=== PATIENT | female | born 1970 | race Caucasian/White ===

== ENCOUNTER → 2022-06-27 15:40 | Outpatient (BNVA) | payer OTHER, SELFPAY | PROVIDERS: Family Provider Nurse Practitioner; PCP Nurse Practitioner; Referring Provider Dermatology; Visit Provider Podiatrist Foot & Ankle Surgery | DX: M72.2 Plantar fascial fibromatosis (principal); M20.41 Other hammer toe(s) (acquired), right foot; M20.42 Other hammer toe(s) (acquired), left foot; M21.611 Bunion of right foot; M21.612 Bunion of left foot | CPT/HCPCS: 73630 ==

== ENCOUNTER → 2024-10-07 07:54 | Outpatient (BNVA) | payer OTHER, SELFPAY | PROVIDERS: Family Provider Nurse Practitioner; PCP Nurse Practitioner; Visit Provider Podiatrist Foot & Ankle Surgery | DX: M79.671 Pain in right foot (principal); M19.071 Primary osteoarthritis, right ankle and foot | CPT/HCPCS: 73630 ==

== ENCOUNTER 2024-12-22 15:52 | Emergency (ER) | payer OTHER, SELFPAY ==
[2024-12-22 16:34] VITALS: BP 162/93; PULSE 73; RESP 18; TEMP 36.6; O2SAT 97
--- NOTE | 2024-12-22 16:43 | CTR_ITS ---
PROCEDURE INFORMATION: Exam: CT Head Without Contrast Exam date and time: 12/22/2024 5:10 PM Age: 54 years old Clinical indication: Injury or trauma; Fall; Work related; Blunt trauma (contusions or hematomas); Without loss of consciousness TECHNIQUE: Imaging protocol: Computed tomography of the head without contrast. Radiation optimization: All CT scans at this facility use at least one of these dose optimization techniques: automated exposure control; mA and/or kV adjustment per patient size (includes targeted exams where dose is matched to clinical indication); or iterative reconstruction. COMPARISON: CT facial bones wo con* [id number] 12/22/2024 5:10 PM RADIATION DOSE METRICS: Total DLP (mGy-cm): 1135.4 FINDINGS: Brain: Normal. No hemorrhage. Unremarkable white matter. No mass effect. Cerebral ventricles: No ventriculomegaly. Paranasal sinuses: Visualized sinuses are unremarkable. No fluid levels. Mastoid air cells: Visualized mastoid air cells are well aerated. Bones: Hyperostosis frontalis. Mildly displaced left nasal bone fracture. Soft tissues: Left frontal scalp and periorbital hematomas. CT/CT head wo con* [id number] IMPRESSION: 1. No acute intracranial abnormality. 2. Left frontal scalp and periorbital hematomas. 3. Mildly displaced left nasal bone fracture.
--- NOTE | 2024-12-22 16:43 | CTR_ITS ---
PROCEDURE INFORMATION: Exam: CT Maxillofacial Without Contrast Exam date and time: 12/22/2024 5:10 PM Age: 54 years old Clinical indication: Injury or trauma; Fall; Work related; Blunt trauma (contusions or hematomas); Orbit/periorbital; Left TECHNIQUE: Imaging protocol: Computed tomography of the face without contrast. Radiation optimization: All CT scans at this facility use at least one of these dose optimization techniques: automated exposure control; mA and/or kV adjustment per patient size (includes targeted exams where dose is matched to clinical indication); or iterative reconstruction. COMPARISON: CT head wo con* [id number] 12/22/2024 5:10 PM RADIATION DOSE METRICS: Total DLP (mGy-cm): 577.2 FINDINGS: Paranasal sinuses: No air-fluid levels. Orbital cavities: Orbits are normal. Globes are unremarkable. Teeth: Small periapical lucencies along right mandibular molars. Bones: Mildly displaced left nasal bone fracture. Soft tissues: Left periorbital and frontal scalp hematomas. CT/CT facial bones wo con* [id number] IMPRESSION: 1. Mildly displaced left nasal bone fracture. 2. Left periorbital and frontal scalp hematomas. 3. Small right mandibular molar periapical lucencies. Consider dental consultation.
--- NOTE | 2024-12-22 16:44 | ECG_ITS ---
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 Measurements Intervals [place] Rate: 65 P: -14 WI: 165 QRS: 48 QRSD: 110 T: -13 QT: 381 QTc: 398 Interpretive Statements SINUS RHYTHM LOW QRS VOLTAGE IN PRECORDIAL LEADS [QRS DEFLECTION < 1.0 mV IN CHEST LEADS] INCOMPLETE RIGHT BUNDLE BRANCH BLOCK [90+ ms QRS DURATION, TERMINAL R IN V1/V2, 40+ ms S IN I/aVL/V4/V5/V6] SEPTAL MYOCARDIAL INFARCTION , OF INDETERMINATE AGE [40+ ms Q WAVE IN V1/V2] No previous ECG available for comparison Electronically Signed On 12-26-2024 18:11:02 ELECTRIC APPLIANCE INSTALLER by Tab Silverio M.D. [email or web address]
--- NOTE | 2024-12-22 16:51 | XRR_ITS ---
PROCEDURE INFORMATION: Exam: XR Right Knee Exam date and time: 12/22/2024 4:56 PM Age: 54 years old Clinical indication: Injury or trauma; Other: Not specified; Blunt trauma; Knee; Bilateral TECHNIQUE: Imaging protocol: Radiologic exam of the right knee. Views: 3 views. COMPARISON: CR XR foot RT min 3V* [id number] 10/07/2024 8:00 AM FINDINGS: Bones/joints: No acute fracture or dislocation. Mild tricompartmental degenerative changes with mild joint space narrowing and marginal osteophytes. Soft tissues: Normal. XR/XR knee RT 3V* [id number] IMPRESSION: No acute osseous findings.
--- NOTE | 2024-12-22 16:51 | XRR_ITS ---
PROCEDURE INFORMATION: Exam: XR Right Elbow Exam date and time: 12/22/2024 5:00 PM Age: 54 years old Clinical indication: Injury or trauma; Other: Not specified; Blunt trauma (contusions or hematomas); Elbow; Right TECHNIQUE: Imaging protocol: Radiologic exam of the right elbow. Views: 3 or more views. COMPARISON: No relevant prior studies available. FINDINGS: Bones/joints: Normal. Soft tissues: Normal. XR/XR elbow RT min 3V* [id number] IMPRESSION: No acute findings.
--- NOTE | 2024-12-22 16:51 | XRR_ITS ---
PROCEDURE INFORMATION: Exam: XR Left Knee Exam date and time: 12/22/2024 4:59 PM Age: 54 years old Clinical indication: Injury or trauma; Other: Not specified; Blunt trauma; Knee; Bilateral TECHNIQUE: Imaging protocol: Radiologic exam of the left knee. Views: 3 views. COMPARISON: CR XR foot LT min 3V* [id number] 06/27/2022 3:43 PM FINDINGS: Bones/joints: No acute fracture or dislocation. Mild tricompartmental degenerative changes most pronounced in the lateral compartment with joint space narrowing and marginal osteophytes. Soft tissues: Normal. XR/XR knee LT 3V* [id number] IMPRESSION: No acute osseous findings.
--- NOTE | 2024-12-22 16:57 | ED_ITS ---
Documented by User: Felix Cardenas DO 12/25/24 13:15 HPI - Fall 2 General: Chief Complaint: Fall Stated Complaint: fall (work comp) Time Seen by Provider: 12/22/24 16:42 History of Present Illness: 54-year-old female presents to the emerg ency room she stumbled and fell while at work landed on outstretched extremities he impacted on her knees and elbows as well as on her face she has bruising on her face and hematoma above her left eye she did not lose consciousness. She is not on any anticoagulants. She is awake and alert the entire time she never had any chest pain she simply stumbled Associated symptoms-after fall: Denies abdominal pain, chest pain or neck pain Related Data Previous Rx's ?Medication ?Instructions ?Recorded meloxicam 15 mg tablet 15 mg PO DAILY #30 tabs 10/21 05/14 Allergies Allergy/AdvReac Type Severity Reaction Status Date / Time Iodinated Contrast Media Allergy Mild rash Verified 12/22/24 16:41 iodine Allergy Mild rash Verified 12/22/24 16:41 shellfish derived Allergy Mild nausea/vomi Verified 12/22/24 16:41 ting Penicillins Allergy rash Verified 12/22/24 16:41 steri strips Allergy ALGY-Bliste Uncoded 12/22/24 16:42 r Review of Systems 2 Const: Denies: fever(s) or chills Card: Denies: chest pain Resp: Denies: dyspnea GI: Denies: abdominal pain : Denies: dysuria, urinary frequency or urinary urgency Musc: Denies: neck pain or back pain Skin/Breast: Denies: rash PFSH ED 2 PFSH: Social History Smoking and tobacco/nicotine status: never used tobacco/nicotine Physical Exam 2 Const: GENERAL APPEARANCE: cooperative ORIENTATION/CONSCIOUSNESS: Yes awake, Yes oriented to person, Yes oriented to place and Yes oriented to time HENMT: COMMON NORMALS: normocephalic and hearing grossly normal bilaterally HEAD & SCALP: normocephalic OTHER: Bruising and swelling above the left eye left lower lip some bruising on the left side of the bridge of the nose. Jaw closes evenly with good alignment. No pain with palpation of the neck Resp: COMMON NORMALS: normal respiratory effort, No retractions, No use of accessory muscles and clear to auscultation bilaterally AUSCULTATION: clear to auscultation bilaterally Cardio: COMMON NORMALS: regular rate, regular rhythm and No murmurs present (Cardio) RATE: regular rate RHYTHM: regular rhythm GI: COMMON NORMALS: Soft to palpation and No hepatosplenomegaly present A USCULTATION: Yes normoactive bowel sounds PALPATION: Yes Soft to palpation, No Tenderness to palpation present (GI), No Guarding due to palpation present (GI) and Yes No hepatosplenomegaly present Extremity: COMMON NORMALS: normal to inspection, capillary refill normal, no clubbing, cyanosis or edema, no calf tenderness and no pedal edema Neuro: SENSORIUM/ORIENTATION: Yes oriented to person, Yes oriented to place and Yes oriented to time Skin: COMMON NORMALS: no rashes or lesions noted GENERAL SKIN EXAM: no rashes or lesions noted Course 2 Vital Signs: Vital signs: Vital Signs Temperature 97.8 F 12/22/24 16:34 Pulse Rate 80 12/22/24 20:08 Respiratory Rate 18 12/22/24 16:34 Blood Pressure 157/88 12/22/24 20:08 Pulse Oximetry 97 12/22/24 20:08 Oxygen Delivery Me thod Room Air 12/22/24 16:34 MDM - Fall Medical Decision Making Care signed out to Dr. Jack at change of shift. See final notes for diagnosis and disposition. Care transferred over to myself at shift change, lab work reviewed, imaging reviewed, face CT showed mildly displaced left nasal bone fracture multiple hematomas, head CT no acute intracranial abnormality, knee x-rays and elbow x- rays negative, cervical spine CT advanced degenerative changes, I discussed these results with the patient patient started complaining of right shoulder pain. We will get a right shoulder x-ray, I will review the findings and anticipate discharge home. Patient has full range of motion and only minimal tenderness in the scapular region. Lab Data 12/22/24 17:17 12/22/24 17:[address] 12/22/24 16:43 IMPRESSION: 1. Mildly displaced left nasal bone fracture. 2. Left periorbital and frontal scalp hematomas. 3. Small right mandibular molar periapical lucencies. Consider dental consultation. Head CT 12/22/24 16:43 IMPRESSION: 1. No acute intracranial abnormality. 2. Left frontal scalp and periorbital hematomas. 3. Mildly displaced left nasal bone fracture. Knee X-Ray 12/22/24 16:51 IMPRESSION: No acute osseous findings. Cervical Spine CT 12/22/24 17:09 IMPRESSION: 1. No acute findings. 2. Moderate to advanced degenerative changes at C5-C6. 3. Punctate right thyroid calcifications. Consider nonemergent dedicated thyroid ultrasound for further evaluation. Elbow X-Ray 12/22/24 17:30 IMPRESSION: No acute findings. Shoulder X-Ray 12/22/24 18:32 IMPRESSION: Cortical irregularity along the acromion may be artifactual. Subtle nondisplaced fracture not entirely excluded. This could be further assessed with CT if warranted. Shoulder CT 12/22/24 19:15 IMPRESSION: 1. No acute osseous findings. 2. 5 mm right upper lobe pulmonary nodule. For patients at low risk (minimal or absent history of smoking and of other known risk factors), no routine follow-up is indicated. For patients at high risk (history of smoking or of other known risk factors), consider optional CT Chest at 12 months. (Reference: Nabil) REFERENCES: Nabil Bates, et al. Guidelines for Management of Incidental Pulmonary Nodules Detected on CT Images: From the Fleischner Society 2017. Radiology. 2017;284(1):228-243. Laboratory Results WBC 12.67 10^3/uL (3.29-11.43) H 12/22/24 17:17 RBC 4.73 10^6/uL (3.85-5.65) 12/22/24 17:17 Hgb 14.30 g/dL (11.27-16.99) 12/22/24 17:17 Hct 43.3 % (36-47) 12/22/24 17:17 MCV 91.5 fl (85-98) 12/22/24 17:17 MCH 30.2 pg (27-33) 12/22/24 17:17 MCHC 33.0 g/dL (30-55) 12/22/24 17:17 RDW 12.5 % (12.1-15.1) 12/22/24 17:17 Plt Count 285 10^3/cmm (157-399) 12/22/24 17:17 MPV 10.0 fL (7.4-10.4) 12/22/24 17:17 Neut % (Auto) 81.2 % 12/22/24 17:17 Lymph % (Auto) 12.1 % 12/22/24 17:17 [place] % (Auto) 4.7 % 12/22/24 17:17 Eos % (Auto) 1.0 % 12/22/24 17:17 Baso % (Auto) 0.6 % 12/22/24 17:17 Neut # (Auto) 10.29 10^3/uL (1.8-7.7) H 12/22/24 17:17 Lymph # (Auto) 1.5 10^3/uL (0.8-4.8) 12/22/24 17:17 [place] # (Auto) 0.6 10^3/uL (0.2-0.9) 12/22/24 17:17 Eos # (Auto) 0.1 10^3/uL (0.0-0.8) 12/22/24 17:17 Baso # (Auto) 0.1 10^3/uL (0.0-0.1) 12/22/24 17:17 Nucleated RBC % (auto) 0 % 12/22/24 17:17 Nucleated RBCs # 0.0 /100WBC 12/22/24 17:17 Sodium 139 mmol/L (136-145) 12/22/24 17:17 Potassium 3.8 mmol/L (3.5-5.1) 12/22/24 17:17 Chloride 100 mmol/L (98-107) 12/22/24 17:17 Carbon Dioxide 27 mmol/L (22-29) 12/22/24 17:17 Anion Gap 15.8 (5-19) 12/22/24 17:17 BUN 10 mg/dL (6-20) 12/22/24 17:17 Creatinine 0.5 mg/dL (0.5-0.9) 12/22/24 17:17 GFR Calculation 127.6 mL/min (90-130) 12/22/24 17:17 Glucose 113 mg/dL (65-115) 12/22/24 17:17 Calculated Osmolality 288 mOsm/kg (285-295) 12/22/24 17:17 Calcium 9.8 mg/dL (8.5-10.5) 12/22/24 17:17 Total Bilirubin 0.3 mg/dL (0.15-1.2) 12/22/24 17:17 AST 25 U/L (0-32) 12/22/24 17:17 ALT 31 U/L (0-33) 12/22/24 17:17 Alkaline Phosphatase 61 U/L (35-105) 12/22/24 17:17 Total Protein 7.7 g/dL (6.6-8.7) 12/22/24 17:17 Albumin 4.5 g/dL (3.5-5.2) 12/22/24 17:17 Globulin 3.2 g/dL (1.3-4.6) 12/22/24 17:17 Discharge Plan Discharge Patient Disposition: Home Clinical Impression: Musculoskeletal pain Fall Qualifiers: Encounter type: initial encounter Qualified Code(s): W19.XXXA - Unspecified fall, initial encounter Closed fracture nasal bone Qualifiers: Encounter type: initial encounter Qualified Code(s): S02.2XXA - Fracture of nasal bones, initial encounter for closed fracture Facial hematoma Qualifiers: Encounter type: initial encounter Qualified Code(s): S00.83XA - Contusion of other part of head, initial encounter Condition: Stable Prescriptions: No Action meloxicam 15 mg tablet 15 mg PO DAILY Qty: 30 0RF Discharge Orders: Discharge ED (Routine); Ordered 12/22/24 Ordered By: Gautam Jack Referrals: Milana Mills APN [Primary Care Provider] - 1 week Patient Instructions: Contusion in Adults (ED), Fractures - Nasal Activity Restrictions/Additional Instructions: Your evaluation in the ER showed you have a small nasal bone fracture, hematomas on your scalp and around her left eye, all other imaging did not show any acute findings. Please continue to use [id number] Tylenol and your meloxicam as needed as directed for pain. Please follow-up with your family practice physician within the next 7 to 10 days for further evaluation and treatment. Print Language: Mauritian Coding Level of Care Code ED Director [employer] for [employer] Fwd Documented by User: Gautam JackDO 12/22/24 18:41 HPI - Fall 2 General: Chief Complaint: Fall Stated Complaint: fall (work comp) Time Seen by Provider: 12/22/24 16:42 Related Data Previous Rx's ?Medication ?Instructions ?Recorded meloxicam 15 mg tablet 15 mg PO DAILY #30 tabs 10/21 05/14 Allergies Allergy/AdvReac Type Severity Reaction Status Date / Time Iodinated Contrast Media Allergy Mild rash Verified 12/22/24 16:41 iodine Allergy Mild rash Verified 12/22/24 16:41 shellfish derived Allergy Mild nausea/vomi Verified 12/22/24 16:41 ting Penicillins Allergy rash Verified 12/22/24 16:41 steri strips Allergy ALGY-Bliste Uncoded 12/22/24 16:42 r PFSH ED 2 PFSH: Social History Smoking and tobacco/nicotine status: never used tobacco/nicotine Course 2 Vital Signs: Vital signs: Vital Signs Temperature 97.8 F 12/22/24 16:34 Pulse Rate 80 12/22/24 20:08 Respiratory Rate 18 12/22/24 16:34 Blood Pressure 157/88 12/22/24 20:08 Pulse Oximetry 97 12/22/24 20:08 Oxygen Delivery Me thod Room Air 12/22/24 16:34 MDM - Fall Medical Decision Making Care transferred over to myself at shift change, lab work reviewed, imaging reviewed, face CT showed mildly displaced left nasal bone fracture multiple hematomas, head CT no acute intracranial abnormality, knee x-rays and elbow x- rays negative, cervical spine CT advanced degenerative changes, I discussed these results with the patient patient started complaining of right shoulder pain. We will get a right shoulder x-ray, I will review the findings and anticipate discharge home. Patient has full range of motion and only minimal tenderness in the scapular region. Lab Data 12/22/24 17:17 12/22/24 17:[address] 12/22/24 16:43 IMPRESSION: 1. Mildly displaced left nasal bone fracture. 2. Left periorbital and frontal scalp hematomas. 3. Small right mandibular molar periapical lucencies. Consider dental consultation. Head CT 12/22/24 16:43 IMPRESSION: 1. No acute intracranial abnormality. 2. Left frontal scalp and periorbital hematomas. 3. Mildly displaced left nasal bone fracture. Knee X-Ray 12/22/24 16:51 IMPRESSION: No acute osseous findings. Cervical Spine CT 12/22/24 17:09 IMPRESSION: 1. No acute findings. 2. Moderate to advanced degenerative changes at C5-C6. 3. Punctate right thyroid calcifications. Consider nonemergent dedicated thyroid ultrasound for further evaluation. Elbow X-Ray 12/22/24 17:30 IMPRESSION: No acute findings. Shoulder X-Ray 12/22/24 18:32 IMPRESSION: Cortical irregularity along the acromion may be artifactual. Subtle nondisplaced fracture not entirely excluded. This could be further assessed with CT if warranted. Shoulder CT 12/22/24 19:15 IMPRESSION: 1. No acute osseous findings. 2. 5 mm right upper lobe pulmonary nodule. For patients at low risk (minimal or absent history of smoking and of other known risk factors), no routine follow-up is indicated. For patients at high risk (history of smoking or of other known risk factors), consider optional CT Chest at 12 months. (Reference: Nabil) REFERENCES: Nabil H, et al. Guidelines for Management of Incidental Pulmonary Nodules Detected on CT Images: From the Fleischner Society 2017. Radiology. 2017;284(1):228-243. Laboratory Results WBC 12.67 10^3/uL (3.29-11.43) H 12/22/24 17:17 RBC 4.73 10^6/uL (3.85-5.65) 12/22/24 17:17 Hgb 14.30 g/dL (11.27-16.99) 12/22/24 17:17 Hct 43.3 % (36-47) 12/22/24 17:17 MCV 91.5 fl (85-98) 12/22/24 17:17 MCH 30.2 pg (27-33) 12/22/24 17:17 MCHC 33.0 g/dL (30-55) 12/22/24 17:17 RDW 12.5 % (12.1-15.1) 12/22/24 17:17 Plt Count 285 10^3/cmm (157-399) 12/22/24 17:17 MPV 10.0 fL (7.4-10.4) 12/22/24 17:17 Neut % (Auto) 81.2 % 12/22/24 17:17 Lymph % (Auto) 12.1 % 12/22/24 17:17 [place] % (Auto) 4.7 % 12/22/24 17:17 Eos % (Auto) 1.0 % 12/22/24 17:17 Baso % (Auto) 0.6 % 12/22/24 17:17 Neut # (Auto) 10.29 10^3/uL (1.8-7.7) H 12/22/24 17:17 Lymph # (Auto) 1.5 10^3/uL (0.8-4.8) 12/22/24 17:17 [place] # (Auto) 0.6 10^3/uL (0.2-0.9) 12/22/24 17:17 Eos # (Auto) 0.1 10^3/uL (0.0-0.8) 12/22/24 17:17 Baso # (Auto) 0.1 10^3/uL (0.0-0.1) 12/22/24 17:17 Nucleated RBC % (auto) 0 % 12/22/24 17:17 Nucleated RBCs # 0.0 /100WBC 12/22/24 17:17 Sodium 139 mmol/L (136-145) 12/22/24 17:17 Potassium 3.8 mmol/L (3.5-5.1) 12/22/24 17:17 Chloride 100 mmol/L (98-107) 12/22/24 17:17 Carbon Dioxide 27 mmol/L (22-29) 12/22/24 17:17 Anion Gap 15.8 (5-19) 12/22/24 17:17 BUN 10 mg/dL (6-20) 12/22/24 17:17 Creatinine 0.5 mg/dL (0.5-0.9) 12/22/24 17:17 GFR Calculation 127.6 mL/min (90-130) 12/22/24 17:17 Glucose 113 mg/dL (65-115) 12/22/24 17:17 Calculated Osmolality 288 mOsm/kg (285-295) 12/22/24 17:17 Calcium 9.8 mg/dL (8.5-10.5) 12/22/24 17:17 Total Bilirubin 0.3 mg/dL (0.15-1.2) 12/22/24 17:17 AST 25 U/L (0-32) 12/22/24 17:17 ALT 31 U/L (0-33) 12/22/24 17:17 Alkaline Phosphatase 61 U/L (35-105) 12/22/24 17:17 Total Protein 7.7 g/dL (6.6-8.7) 12/22/24 17:17 Albumin 4.5 g/dL (3.5-5.2) 12/22/24 17:17 Globulin 3.2 g/dL (1.3-4.6) 12/22/24 17:17 All radiology interpretation(s) finalized by discharge Discharge Plan Discharge Patient Disposition: Home Clinical Impression: Musculoskeletal pain Fall Qualifiers: Encounter type: initial encounter Qualified Code(s): W19.XXXA - Unspecified fall, initial encounter Closed fracture nasal bone Qualifiers: Encounter type: initial encounter Qualified Code(s): S02.2XXA - Fracture of nasal bones, initial encounter for closed fracture Facial hematoma Qualifiers: Encounter type: initial encounter Qualified Code(s): S00.83XA - Contusion of other part of head, initial encounter Condition: Stable Prescriptions: No Action meloxicam 15 mg tablet 15 mg PO DAILY Qty: 30 0RF Discharge Orders: Discharge ED (Routine); Ordered 12/22/24 Ordered By: Gautam Jack Referrals: Milana Mills APN [Primary Care Provider] - 1 week Patient Instructions: Contusion in Adults (ED), Fractures - Nasal Activity Restrictions/Additional Instructions: Your evaluation in the ER showed you have a small nasal bone fracture, hematomas on your scalp and around her left eye, all other imaging did not show any acute findings. Please continue to use [id number] Tylenol and your meloxicam as needed as directed for pain. Please follow-up with your family practice physician within the next 7 to 10 days for further evaluation and treatment. Print Language: Mauritian Coding Level of Care Code ED Director [employer] for Judie Alegria
--- NOTE | 2024-12-22 17:09 | CTR_ITS ---
PROCEDURE INFORMATION: Exam: CT Cervical Spine Without Contrast Exam date and time: 12/22/2024 5:10 PM Age: 54 years old Clinical indication: Injury or trauma; Fall; Work related; Blunt trauma TECHNIQUE: Imaging protocol: Computed tomography of the cervical spine without contrast. Radiation optimization: All CT scans at this facility use at least one of these dose optimization techniques: automated exposure control; mA and/or kV adjustment per patient size (includes targeted exams where dose is matched to clinical indication); or iterative reconstruction. COMPARISON: CT facial bones wo con* [id number] 12/22/2024 5:10 PM RADIATION DOSE METRICS: Total DLP (mGy-cm): 315.3 FINDINGS: Bones: No acute fracture. Normal alignment. Moderate to advanced degenerative changes at C5-C6. Disc bulge as well as dpovm-[id number]-left uncovertebral and facet hypertrophy at this level result in at least mild spinal canal stenosis and moderate right neural foraminal narrowing. Lungs: Lung apices are normal. Thyroid: Punctate right thyroid calcifications. Soft tissues: Unremarkable. CT/CT cervical spin wo con* [id number] IMPRESSION: 1. No acute findings. 2. Moderate to advanced degenerative changes at C5-C6. 3. Punctate right thyroid calcifications. Consider nonemergent dedicated thyroid ultrasound for further evaluation.
--- NOTE | 2024-12-22 17:30 | XRR_ITS ---
PROCEDURE INFORMATION: Exam: XR Right Elbow Exam date and time: 12/22/2024 5:04 PM Age: 54 years old Clinical indication: Injury or trauma; Fall; Blunt trauma (contusions or hematomas); Elbow; Right TECHNIQUE: Imaging protocol: Radiologic exam of the right elbow. Views: 3 or more views. COMPARISON: CR XR elbow RT min 3V* [id number] 12/22/2024 5:00 PM FINDINGS: Bones/joints: Normal. Soft tissues: Normal. XR/XR elbow RT min 3V* [id number] IMPRESSION: No acute findings.
[2024-12-22 17:53] LABS: Basophils # 0.1 10^3/uL (0.0-0.1); Basophils % 0.6 %; Eosinophils # 0.1 10^3/uL (0.0-0.8); Hematocrit 43.3 % (36-47); Lymphocytes # 1.5 10^3/uL (0.8-4.8); Lymphocytes % 12.1 %; Mean Corpuscular Hemoglobin 30.2 pg (27-33); Mean Corpuscular Volume 91.5 fl (85-98); Monocytes # 0.6 10^3/uL (0.2-0.9); Monocytes % 4.7 %; Neutrophils # 10.29 10^3/uL (1.8-7.7); Neutrophils % 81.2 %; Nucleated Red Blood Cells % 0 %; Platelet Count 285 10^3/cmm (157-399); Red Blood Count 4.73 10^6/uL (3.85-5.65); Red Cell Distribution Width 12.5 % (12.1-15.1); White Blood Count 12.67 10^3/uL (3.29-11.43)
[2024-12-22 18:09] LABS: Alanine Aminotransferase 31 U/L (0-33); Albumin Level 4.5 g/dL (3.5-5.2); Alkaline Phosphatase 61 U/L (35-105); Anion Gap 15.8 (5-19); Aspartate Amino Transferase 25 U/L (0-32); Blood Urea Nitrogen 10 mg/dL (6-20); Calcium 9.8 mg/dL (8.5-10.5); Carbon Dioxide 27 mmol/L (22-29); Chloride 100 mmol/L (98-107); Globulin 3.2 g/dL (1.3-4.6); Glomerular Filtration Rate 127.6 mL/min (90-130); Glucose 113 mg/dL (65-115); Osmolality Calculated 288 mOsm/kg (285-295); Potassium 3.8 mmol/L (3.5-5.1); Sodium 139 mmol/L (136-145); Total Bilirubin 0.3 mg/dL (0.15-1.2); Total Protein 7.7 g/dL (6.6-8.7)
--- NOTE | 2024-12-22 18:32 | XRR_ITS ---
PROCEDURE INFORMATION: Exam: XR Right Shoulder Exam date and time: 12/22/2024 6:47 PM Age: 54 years old Clinical indication: Injury or trauma; Fall; Work related; Blunt trauma (contusions or hematomas); Shoulder; Right; Additional info: Fall, shoulder blade pain TECHNIQUE: Imaging protocol: Radiologic exam of the right shoulder. Views: 2 or more views. COMPARISON: CT cervical spin wo con* [id number] 12/22/2024 5:10 PM FINDINGS: Limitations: Suboptimal image quality due to patient body habitus. Bones/joints: Areas of mild cortical irregularity are seen along the acromion. No dislocation. Soft tissues: Normal. XR/XR shoulder RT min 2V* [id number] IMPRESSION: Cortical irregularity along the acromion may be artifactual. Subtle nondisplaced fracture not entirely excluded. This could be further assessed with CT if warranted.
[2024-12-22 18:34] VITALS: BP 151/86; PULSE 82; O2SAT 98
--- NOTE | 2024-12-22 19:15 | CTR_ITS ---
PROCEDURE INFORMATION: Exam: CT Right Upper Extremity Without Contrast, Shoulder Exam date and time: 12/22/2024 7:27 PM Age: 54 years old Clinical indication: Injury or trauma; Fall; Work related; Blunt trauma (contusions or hematomas); Shoulder; Right; Additional info: Fall, abnormal x-ray, possible acromion fracture TECHNIQUE: Imaging protocol: Computed tomography of the right upper extremity without contrast. Exam focused on the shoulder. Radiation optimization: All CT scans at this facility use at least one of these dose optimization techniques: automated exposure control; mA and/or kV adjustment per patient size (includes targeted exams where dose is matched to clinical indication); or iterative reconstruction. COMPARISON: CR (CHEST, ) 12/22/2024 6:47 PM RADIATION DOSE METRICS: Total DLP (mGy-cm): 640.66 FINDINGS: Bones/joints: No acute fracture or dislocation. Mild degenerative changes of the acromioclavicular and glenohumeral joints. Soft tissues: Normal. Lungs: 5 mm right upper lobe nodule on series 5, image 48. CT/CT shoulder RT wo con* [id number] IMPRESSION: 1. No acute osseous findings. 2. 5 mm right upper lobe pulmonary nodule. For patients at low risk (minimal or absent history of smoking and of other known risk factors), no routine follow-up is indicated. For patients at high risk (history of smoking or of other known risk factors), consider optional CT Chest at 12 months. (Reference: Nabil) REFERENCES: Nabil Bates et al. Guidelines for Management of Incidental Pulmonary Nodules Detected on CT Images: From the [employer]ner Society 2017. Radiology. 2017;284(1):228-243.
[2024-12-22 20:08] VITALS: BP 157/88; PULSE 80; O2SAT 97
== END 2024-12-22 20:09 | disposition home or self-care (01) ==
PROVIDERS: Emergency Provider Family Medicine; PCP Nurse Practitioner Family
DX: S02.2XXA Fracture of nasal bones, initial encounter for closed fracture (principal); S00.83XA Contusion of other part of head, initial encounter; M25.511 Pain in right shoulder; M25.521 Pain in right elbow; M54.9 Dorsalgia, unspecified; M25.562 Pain in left knee; M25.561 Pain in right knee; W19.XXXA Unspecified fall, initial encounter
CPT/HCPCS: 36415; 70450; 70486; 72125; 73030; 73080; 73200; 73562; 80053; 85025; 93005; 99285

== ENCOUNTER → 2025-08-02 15:03 | Outpatient (BNVA) | payer OTHER, SELFPAY | PROVIDERS: PCP Nurse Practitioner Family; Visit Provider Orthopaedic Surgery | DX: M17.12 Unilateral primary osteoarthritis, left knee (principal) | CPT/HCPCS: 73560; 73565 ==